=== PATIENT | male | born 1940 | race Caucasian/White ===

== ENCOUNTER → 2017-10-23 | Day surgery (SDC) | payer MEDICARE, BC ==
[~2017-10-23] MED LIST: Lactated Ringers 1,000 ML IV SCH; Propofol 200 MG/20 ML SDV IV ONE
--- NOTE | 2017-10-26 09:51 | OR ---
DATE OF OPERATION: 10/23/2017 PREOPERATIVE DIAGNOSIS: EPIGASTRIC PAIN. POSTOPERATIVE DIAGNOSIS: EPIGASTRIC PAIN. SURGEON: Agus Espinoza MD PROCEDURE: EGD WITH BIOPSY X2, ABBY. 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 COMPLICATIONS: None. SPECIMEN: 1. Antral biopsy x2. 2. ABBY. FINDINGS: 1. Full-length EGD. 2. Antral gastritis, mild with multiple erosions. RECOMMENDATIONS: The patient will be placed on proton pump therapy and Carafate. We will follow him up in the clinic. INDICATIONS: The patient has some chronic issues with abdominal pain and epigastric pain, bloating. He had a negative CAT scan of the abdomen, and we elected to proceed with EGD. DESCRIPTION OF PROCEDURE: The patient was prepped and draped, placed in the left lateral decubitus position. A lubricated Olympus gastroscope was inserted over a bit and advanced to cricopharyngeus area and with patient swallow, intubated in the esophagus. Esophageal lining was benign in its entire course. The Z-line was crisp and sharp around 38 cm, may be a small hernia present, but no distal esophagitis, stricturing, ulceration, or Mosley's changes. The scope was advanced into the stomach through the pylorus and the second portion of the duodenum. This and the duodenal bulb were benign. The scope was brought back into the stomach and retroflexed. The upper fundus and cardia were unremarkable. Upon straightening, the rest of the fundus was benign. The patient does have distal antral gastritis, which appears chronic. There are multiple small erosions. Two biopsies were taken along with a ABBY test. No other polyps, mass, ulcerations, or lesions were seen. Air was suctioned from the stomach, and the scope was removed without complication. BREANNA/IRINA /[id number]
== END ==
LOC: CC.SDS 10:23
PROVIDERS: ATTEND Family Medicine
DX: K29.50 Unspecified chronic gastritis without bleeding (principal); K25.9 Gastric ulcer, unspecified as acute or chronic, without hemorrhage or perforation; K21.9 Gastro-esophageal reflux disease without esophagitis; E03.9 Hypothyroidism, unspecified; Z79.899 Other long term (current) drug therapy; Z88.5 Allergy status to narcotic agent; Z88.8 Allergy status to other drugs, medicaments and biological substances
CPT/HCPCS: 87081; J2704; J7120

== ENCOUNTER → 2020-03-30 | Day surgery (SDC) | payer MEDICARE, BC ==
[~2020-03-30] MED LIST changes: +Ketamine 200 MG/20 ML MDV IV ONE; +Lidocaine 2% 20 ML MDV INJECT ONE; +Phenylephrine 1% 10 MG/ML SDV IV ONE; +fentaNYL 100 MCG/2 ML SDV IV ONE
--- NOTE | 2020-03-30 14:49 | OR ---
DATE OF OPERATION: 03/30/2020 PREOPERATIVE DIAGNOSIS: 1. EPIGASTRIC PAIN. 2. ABDOMINAL BLOATING. 3. SCREENING COLONOSCOPY. POSTOPERATIVE DIAGNOSIS: 1. EPIGASTRIC PAIN. 2. ABDOMINAL BLOATING. 3. SCREENING COLONOSCOPY. SURGEON: Agus Espinoza MD PROCEDURE: 1. DIAGNOSTIC EGD WITH BIOPSIES X3, ABBY. 2. FULL-LENGTH SCREENING COLONOSCOPY. ANESTHESIA: MAC. COMPLICATIONS: None. SPECIMEN: 1. Duodenal bulb biopsy x1. 2. Antral biopsy x1. 3. Fundal biopsy x1. 4. Antral ABBY. FINDINGS: 1. Full-length diagnostic EGD. 2. Chronic-appearing and diffuse gastritis. 3. Mild duodenitis. 4. Full-length screening colonoscopy. 5. Moderate sigmoid diverticulosis. RECOMMENDATIONS: Followup colonoscopy is on an as-needed basis only. We will aggressively treat his gastritis. INDICATIONS: Ramos has been having some ongoing issues with epigastric pain and abdominal bloating. He has had this in the past. He is about 10 years since his last colonoscopy. We elected to proceed with a diagnostic EGD and at his request his last screening colon exam. DESCRIPTION OF PROCEDURE: The patient was prepped and draped, placed in the left lateral decubitus position. A lubricated Olympus gastroscope was inserted over a bit, advanced to cricopharyngeus area, and easily intubated into the esophagus. The esophageal lining was benign in its entire course. The Z-line was crisp and sharp at 40 cm. There was no hernia. No distal esophagitis, stricturing, ulceration, or Mosley's changes, and no spontaneous GERD was seen. The scope was advanced into the stomach, through the pylorus, and into the second portion of the duodenum, this was benign. The duodenal bulb maybe had some very mild active inflammation, we did do a biopsy. The scope was brought back into the stomach and retroflexed. The upper fundus and cardia were grossly benign. Upon straightening, the majority of the fundus and antrum had changes of chronic gastritis. We did do a sales representative womens health biopsy of each area along with a CLOtest. Air was then suctioned from the stomach and the scope was removed without complication. A lubricated Olympus colonoscope was then inserted and with ease advanced to the cecum. Direct visualization of the ileocecal valve was accomplished. Could not visualize the appendiceal orifice as patient had a lot of stool there. It was difficult to get tight in there to irrigate, but we were able to get overall very good visualization. Otherwise, bowel prep in the rest of colon appeared adequate. Upon withdrawal, the cecum, ascending, and transverse colons were completely benign. The patient does have moderate diverticular disease throughout most of the left colon and into the rectosigmoid junction. No acute inflammatory changes were seen. Throughout the length of the colon, I could find no polyps, masses, ulceration, or bleeding sites. No vascular abnormalities or signs of colitis. The rectal vault was benign. Retroflexion showed no perianal lesions. Air was suctioned, the scope removed without complication. BREANNA/IRINA /[id number]
== END ==
LOC: CC.SDS 09:45
PROVIDERS: ATTEND Family Medicine
DX: Z12.11 Encounter for screening for malignant neoplasm of colon (principal); K57.30 Diverticulosis of large intestine without perforation or abscess without bleeding; K29.50 Unspecified chronic gastritis without bleeding; K31.89 Other diseases of stomach and duodenum; K29.80 Duodenitis without bleeding; E78.5 Hyperlipidemia, unspecified; E03.9 Hypothyroidism, unspecified; J44.9 Chronic obstructive pulmonary disease, unspecified; F32.9 Major depressive disorder, single episode, unspecified; Z79.899 Other long term (current) drug therapy; Z79.890 Hormone replacement therapy; Z87.891 Personal history of nicotine dependence; Z01.812 Encounter for preprocedural laboratory examination; Z20.828 Contact with and (suspected) exposure to other viral communicable diseases
CPT/HCPCS: 87081; 88305; J2001; J2370; J2704; J3010; J7120; U0002